=== PATIENT | male | born 1960 | race Asian ===

== ENCOUNTER 2018-08-27 06:00 | Day surgery (SDC) | payer OTHER ==
[2018-08-27] MEDS ORDERED: LACTATED RINGERS 1,000 ML IV ONE ×2 (06:30)
[2018-08-27] MEDS ORDERED: MIDAZOLAM 2 MG/2 ML VIAL IVP ONE (07:32)
[2018-08-27] MEDS ORDERED: fentaNYL 250 MCG/5 ML VIAL IVP ONE (07:32)
[2018-08-27 08:29] VITALS: BP 127/84
== END 2018-08-27 06:01 | disposition home or self-care (01) ==
LOC: SDS 06:00
PROVIDERS: ATTEND Surgery
PROC: 0DJD8ZZ Inspection of Lower Intestinal Tract, Via Natural or Artificial Opening Endoscopic (ICD-10-PCS; principal; 2018-08-27 07:30)
DX: Z12.11 Encounter for screening for malignant neoplasm of colon (principal); K57.30 Diverticulosis of large intestine without perforation or abscess without bleeding; K64.8 Other hemorrhoids; I10 Essential (primary) hypertension; E11.9 Type 2 diabetes mellitus without complications; K21.9 Gastro-esophageal reflux disease without esophagitis; Z87.891 Personal history of nicotine dependence
CPT/HCPCS: 45378; J3010; J7120

== ENCOUNTER 2023-07-26 07:35 | Outpatient (CLI) | payer MEDICARE, OTHER ==
--- NOTE | 2023-07-26 11:49 | Ultrasound Report ---
PROCEDURE: Aorta Screening INDICATIONS: SCREENING FOR CARDIOVASCULAR DISEASE TECHNIQUE: Real time scanning was performed of the aorta and iliac arteries, with image documentatio n. COMPARISON: None. FINDINGS: Aorta: Proximal aortic diameter measures 2.7 x 2.7 cm. Mid-aorta measures 2.5 x 2.2 cm. Distal aor tic diameter is 2 x 1.9 cm. Iliac arteries: Right common iliac artery measures 1.3 x 1.3 cm. Left common iliac artery measures 1.3 x 1.4 cm. IMPRESSION: No abdominal aortic aneurysm. Consider 5 year follow-up. Recommended intervals for follow-up imaging of ectatic aortas and abdominal aortic aneurysms, per ACR consensus guidelines: 2.5-2.9 cm: 5 years 3.0-3.4 cm: 3 years 3.5-3.9 cm: 2 years 4.0-4.4 cm: 1 year 4.5-4.9 cm: 6 months + endovascular referral 5.0-5.5 cm: 3-6 months + endovascular referral Reviewed by: Damaso Love MD on 07/26/2023 11:47 AM PDT Approved by: Damaso Love MD on 07/26/2023 11:47 AM PDT Station ID: [id number]
== END 2023-07-26 07:36 | disposition home or self-care (01) ==
LOC: DI 07:35
PROVIDERS: ATTEND Internal Medicine
DX: Z13.6 Encounter for screening for cardiovascular disorders (principal)